=== PATIENT | female | born 1945 | race Caucasian/White ===

== ENCOUNTER → 2016-03-31 | Outpatient (CLI) | payer OTHER | END | disposition home or self-care (01) | LOC: C.MAMM 08:13 | PROVIDERS: ATTEND Family Medicine | DX: M81.0 Age-related osteoporosis without current pathological fracture (principal) ==

== ENCOUNTER → 2016-10-24 | Outpatient (CLI) | payer OTHER ==
--- NOTE | 2016-10-24 16:07 | MAMMOGRAPHY REPORT ---
BILATERAL DIGITAL SCREENING MAMMOGRAM WITH CAD: 10/24/2016 CLINICAL HISTORY: Routine screening. Patient has no complaints. TECHNIQUE: Bilateral CC and MLO views were obtained. Current study was also evaluated with a Compute r Aided Detection (CAD) system. COMPARISON: Comparison is made to exams dated: 10/19/2015 mammogram, 10/14/2013 mammogram, 10/15/2014 ma mmogram, 10/11/2012 mammogram, 10/11/2011 mammogram, and 10/08/2010 mammogram - [facility]ter. BREAST COMPOSITION: There are scattered areas of fibroglandular density in both breasts. FINDINGS: There is a newly visualized 5 mm nodular asymmetry in the left breast, along the posterior nipple line on the CC view, approximately 5 cm distal to the nipple. It is unclear if this projects below the posterior nipple line or above on the MLO view. Although this could represent overlapping tissue, additional spot compression tomosynthesis views and possibly ultrasound are recommended. There is stable asymmetry in the medial right breast. Mild vascular calcification bilaterally. No o ther suspicious mass, architectural distortion or cluster of microcalcifications is seen. IMPRESSION: ACR BI-RADS CATEGORY 0: INCOMPLETE EVALUATION: NEED ADDITIONAL IMAGING EVALUATION The 5 mm nodular asymmetry in the left breast, along the posterior nipple line on the CC view, needs additional evaluation. The patient will be called to schedule an appointment. Approximately 10% of breast cancers are not detected with mammography. A negative mammographic report should not delay biopsy if a clinically suggestive mass is present. Taylor Dodge M.D. ay/:10/24/2016 15:03:50 Electrophysiology Scientist: Misty SAAVEDRA(Narendra)(Christopher), [facility] letter sent: Addl Imaging 0 BI-RADS Code: ACR BI-RADS Category 0: Incomplete Evaluation: Need Additional Imaging Evaluation
== END | disposition home or self-care (01) ==
LOC: C.MAMM 09:40
PROVIDERS: ATTEND Family Medicine
DX: Z12.31 Encounter for screening mammogram for malignant neoplasm of breast (principal); N64.89 Other specified disorders of breast

== ENCOUNTER → 2016-10-31 | Outpatient (CLI) | payer OTHER ==
--- NOTE | 2016-10-31 14:33 | MAMMOGRAPHY REPORT ---
UNILATERAL LEFT DIGITAL DIAGNOSTIC MAMMOGRAM TOMOSYNTHESIS AND TARGETED LEFT ULTRASOUND: 10/31/2016 CLINICAL HISTORY: 71-year-old woman called back from screening mammography for a 5 mm nodular asymmet ry in the anterior left breast, along the posterior nipple line on the CC view. Family history of br east cancer = premenopausal sister with inflammatory carcinoma. TECHNIQUE: Spot compression left CC and MLO 2-D and tomosynthesis images were obtained. Full field left CC and MLO 2-D and tomosynthesis images were obtained after placement of a skin BB marker. COMPARISON: Comparison is made to exams dated: 10/24/2016 mammogram, 10/19/2015 mammogram, 10/15/2014 [place] mogram, 10/14/2013 mammogram, 10/11/2012 mammogram, and 10/11/2011 mammogram - [facility]. BREAST COMPOSITION: There are scattered areas of fibroglandular density in the left breast. FINDINGS: The spot compression views of the left breast demonstrate persistence of a partially circum scribed 5.2 x 4.2 x 3.1 mm mass in the anterior retroareolar versus 6:00 left breast. No assisted ar chitectural distortion or microcalcification. No other obvious mass or other suspicious abnormality is seen on the spot compression views. Targeted ultrasound was performed in the left breast from the 12:00, retroareolar and 6:00 axes but a lso slightly medial and lateral to the sagittal plane of the nipple. There is an anechoic benign sim ple cyst in the 2:00 left breast, 2 cm from the nipple, measuring 4.4 x 2.9 x 4.3 mm. No other discr ete solid or cystic mass was initially identified. A skin BB was placed on the skin overlying this c yst and repeat full field left CC and MLO views were obtained. However, the BB marker does not align with the mammographic mass in question and additional ultrasound was performed. With additional real-time ultrasound, no discrete solid or cystic mass was identified. IMPRESSION: ACR BI-RADS CATEGORY 0: INCOMPLETE EVALUATION: NEED ADDITIONAL IMAGING EVALUATION, TARG ETED ULTRASOUND ACR BI-RADS CATEGORY 0: INCOMPLETE EVALUATION: NEED ADDITIONAL IMAGING EVALUATION There is persistence of a partially circumscribed and obscured 5.2 mm mass in the 6:00 anterior versu s retroareolar left breast, 5 cm distal to the nipple on the CC view, without sonographic correlate i dentified. Given the subtle appearance on the 2-D mammographic images, this mass blends in with the adjacent glandular tissue and would not be amenable to stereotactic biopsy. Therefore, further evalu ation with a contrast-enhanced breast MRI is needed for definitive characterization and to exclude th e possibility of a suspicious enhancing mass. These results and recommendations were discussed with the patient at the time of the exam. Approximately 10% of breast cancers are not detected with mammography. A negative mammographic report should not delay biopsy if a clinically suggestive mass is present. Taylor Dodge M.D. ay/:10/31/2016 12:42:57 Section Laborer: Adriana SAAVEDRA(R)(M), [facility] letter sent: Addl Imaging 0 BI-RADS Code: ACR BI-RADS Category 0: Incomplete Evaluation: Need Additional Imaging Evaluation Ult rasound BI-RADS: ACR BI-RADS Category 0: Incomplete Evaluation: Need Additional Imaging Evaluation
== END | disposition home or self-care (01) ==
LOC: C.MAMM 09:17
PROVIDERS: ATTEND Family Medicine
DX: N63 Unspecified lump in breast (principal); Z80.3 Family history of malignant neoplasm of breast

== ENCOUNTER → 2016-11-07 | Outpatient (CLI) | payer OTHER ==
[2016-11-07 18:12] LABS: URINE APPEARANCE CLOUDY (CLEAR); URINE BILIRUBIN NEG (NEG); URINE COLOR YELLOW; URINE NITRITE POS (NEG); URINE PH 6.5 (4.5-7.5); URINE SPECIFIC GRAVITY 1.014 (1.000-1.030); UROBILINOGEN NEG (NEG)
[2016-11-07 18:19] LABS: MANUAL MICROSCOPIC REQUIRED? NO; REVIEW REQ? NO
== END | disposition home or self-care (01) ==
LOC: C.LABPBG 11:55
PROVIDERS: ATTEND Family Medicine
DX: R39.9 Unspecified symptoms and signs involving the genitourinary system (principal)

== ENCOUNTER → 2016-11-11 | Outpatient (CLI) | payer OTHER ==
[2016-11-11 17:01] LABS: URINE APPEARANCE CLEAR (CLEAR); URINE BILIRUBIN NEG (NEG); URINE COLOR YELLOW; URINE NITRITE NEG (NEG); URINE SPECIFIC GRAVITY 1.017 (1.000-1.030); UROBILINOGEN NEG (NEG)
[2016-11-11 17:04] LABS: MANUAL MICROSCOPIC REQUIRED? NO; REVIEW REQ? NO
[2016-11-11 17:09] LABS: BLOOD UREA NITROGEN 16 mg/dl (7-18); BUN/CREATININE RATIO 16.4 (10-20); CREATININE 0.97 mg/dl (0.60-1.20)
== END | disposition home or self-care (01) ==
LOC: C.LABPBG 14:03
PROVIDERS: ATTEND Family Medicine
DX: R39.9 Unspecified symptoms and signs involving the genitourinary system (principal); R92.8 Other abnormal and inconclusive findings on diagnostic imaging of breast

== ENCOUNTER → 2016-11-16 | Outpatient (CLI) | payer OTHER ==
[~2016-11-16] MED LIST: GADAVIST IV PRN
--- NOTE | 2016-11-17 12:41 | MAMMOGRAPHY REPORT ---
BREAST MRI OF BOTH BREASTS : 11/16/2016 CLINICAL HISTORY: Small 5 mm mass seen within the left breast on recent diagnostic mammograms, withou t a sonographic correlate identified. Bilateral breast MRI was recommended for further evaluation. COMPARISON: Comparison is made to exams dated: 10/31/2016 mammogram, 10/24/2016 mammogram, 10/19/2015 [place] mogram, 10/15/2014 mammogram, 10/14/2013 mammogram, and 10/11/2012 mammogram - [facility] ter. Technique: The patient was placed prone in a dedicated breast imaging coil. Precontrast axial T1-jodee ghted, axial T2-weighted fat saturation, and axial T1-weighted fat saturation images were obtained. After the administration of 7 mL of Gadavist IV contrast, sequential T1-weighted fat saturation image s were obtained. Subtraction images were obtained of the dynamic contrast enhanced sequences, and 3- D reformations were performed. The [employer] software was used for kinetic analysis. Findings: Right breast: There is minimal background parenchymal enhancement. There are no suspicious enhancing masses or areas of abnormal non-mass enhancement within the right breast. Left breast: There is minimal background parenchymal enhancement. There are no suspicious enhancing masses or areas of abnormal non-mass enhancement within the left breast. There is a circumscribed 4 mm T2 hyperintense, nonenhancing mass within the left 6:00 breast middle depth (series 4 image 44). This corresponds with the mass seen on the recent mammograms and is consistent with a benign cyst. A small 5 mm T2 hyperintense, nonenhancing mass is also seen within the left upper outer quadrant at a pproximately 2:00, consistent with a cyst. There is no evidence of axillary adenopathy. The chest wall structures are negative. Extramammary s oft tissues are unremarkable. IMPRESSION: ACR BI-RADS CATEGORY 2: BENIGN Small 4 mm cyst in the left 6:00 breast, which corresponds with the mammographic mass and is benign. No MRI evidence of malignancy in either breast. Return to annual mammogram screening schedule is re commended. Shivani Kaye M.D. /:11/16/2016 16:25:00 Powder Line Repairer: adjunct professor of voice, [facility] letter sent: Normal 1/2 BI-RADS Code: ACR BI-RADS Category 2: Benign
== END | disposition home or self-care (01) ==
LOC: C.MRI 11:24
PROVIDERS: ATTEND Family Medicine
DX: R92.8 Other abnormal and inconclusive findings on diagnostic imaging of breast (principal)

== ENCOUNTER → 2016-12-05 | Outpatient (CLI) | payer OTHER ==
[2016-12-06 12:10] LABS: URINE APPEARANCE CLOUDY (CLEAR); URINE BILIRUBIN NEG (NEG); URINE COLOR YELLOW; URINE NITRITE POS (NEG); URINE PH 5.5 (4.5-7.5); URINE SPECIFIC GRAVITY 1.023 (1.000-1.030); UROBILINOGEN NEG (NEG)
[2016-12-06 12:14] LABS: MANUAL MICROSCOPIC REQUIRED? NO; REVIEW REQ? NO
== END | disposition home or self-care (01) ==
LOC: C.LABSPEC 15:07
PROVIDERS: ATTEND Family Medicine
DX: R39.9 Unspecified symptoms and signs involving the genitourinary system (principal)

== ENCOUNTER → 2017-03-07 | Outpatient (CLI) | payer OTHER ==
[2017-03-07 12:25] LABS: HEMATOCRIT 44.3 % (37-47); MEAN CELL VOLUME 94.3 fL (80-100); MEAN CORPUSCULAR HEMOGLOBIN 31.7 pg (25-34); MEAN CORPUSCULAR HGB CONC 33.6 g/dl (32-36); MEAN PLATELET VOLUME 10.6 fL (7.4-10.4); PLATELET COUNT 209 K/uL (130-400); WHITE BLOOD COUNT 5.33 K/uL (4.8-10.8)
[2017-03-07 12:37] LABS: BLOOD UREA NITROGEN 12 mg/dl (7-18); BUN/CREATININE RATIO 14.8 (10-20); CALCIUM 8.9 mg/dl (8.5-10.1); CARBON DIOXIDE 27 mmol/L (21-32); CHLORIDE 106 mmol/L (98-107); CHOLESTEROL 223 mg/dl (0-200); CREATININE 0.84 mg/dl (0.60-1.20); GLUCOSE 108 mg/dl (70-99); POTASSIUM 4.2 mmol/L (3.5-5.1); SODIUM 138 mmol/L (136-145)
[2017-03-07 12:42] LABS: CHOLESTEROL/HDL RATIO 5.4; HDL CHOLESTEROL 41 mg/dl; LDL CHOLESTEROL CALCULATED 138 mg/dl; TRIGLYCERIDES 221 mg/dl (0-150); VERY LOW DENSITY LIPOPROT CALC 44 mg/dl
== END | disposition home or self-care (01) ==
LOC: C.LABPBG 10:01
PROVIDERS: ATTEND Family Medicine
DX: Z00.00 Encounter for general adult medical examination without abnormal findings (principal); E78.5 Hyperlipidemia, unspecified; K58.9 Irritable bowel syndrome, unspecified

== ENCOUNTER → 2017-06-16 | Outpatient (CLI) | payer OTHER | END | disposition home or self-care (01) | LOC: C.LABSPEC 15:32 | PROVIDERS: ATTEND Family Medicine | DX: R39.9 Unspecified symptoms and signs involving the genitourinary system (principal) ==

== ENCOUNTER → 2017-10-06 | Outpatient (CLI) | payer OTHER | END | disposition home or self-care (01) | LOC: C.LABSPEC 13:59 | PROVIDERS: ATTEND Family Medicine | DX: R39.9 Unspecified symptoms and signs involving the genitourinary system (principal) ==

== ENCOUNTER → 2017-10-25 | Outpatient (CLI) | payer OTHER ==
--- NOTE | 2017-10-26 15:15 | MAMMOGRAPHY REPORT ---
BILATERAL DIGITAL SCREENING MAMMOGRAM TOMOSYNTHESIS WITH CAD: 10/25/2017 CLINICAL HISTORY: Routine screening. Patient has no complaints. TECHNIQUE: The study was acquired using full field digital technology and interpreted from soft copy. Breast tomosynthesis in addition to standard 2D mammography was performed. Current study was also ev aluated with a Computer Aided Detection (CAD) system. COMPARISON: Comparison is made to exams dated: 10/31/2016 mammogram, 10/24/2016 mammogram, 10/19/2015 [place] mogram, 10/15/2014 mammogram, 10/14/2013 mammogram, and 10/11/2012 mammogram - [facility]. BREAST COMPOSITION: There are scattered areas of fibroglandular density in both breasts. FINDINGS: No suspicious masses, calcifications, or areas of architectural distortion are noted in either breast . There has been no significant interval change compared to prior exams. Bilateral asymmetries are s table compared to prior exams, including an asymmetry in the right medial breast on the cc view which is stable dating back to at least the 2008 exam. IMPRESSION: ACR BI-RADS CATEGORY 2: BENIGN There is no mammographic evidence of malignancy. A 1 year screening mammogram is recommended.( [id number]) The patient will receive written notification of the results. Some breast cancers are not detected with mammography. A negative mammographic report should not amara y biopsy if a clinically suggestive mass is present. Shivani Kaye M.D. /:10/25/2017 15:57:35 Supervisor Weaving: RT Edilberto(Narendra)(M), [facility] letter sent: Normal 1/2 BI-RADS Code: ACR BI-RADS Category 2: Benign
== END | disposition home or self-care (01) ==
LOC: C.MAMM 11:24
PROVIDERS: ATTEND Family Medicine
DX: Z12.31 Encounter for screening mammogram for malignant neoplasm of breast (principal)